=== PATIENT | female | born 1965 | race Caucasian/White ===

== ENCOUNTER 2019-02-16 11:50 | Emergency (ER) | payer OTHER ==
[2019-02-16 12:04] VITALS: BP 155/89; PULSE 85; TEMP 98; BMI 29.7
[2019-02-16] MEDS ORDERED: IBUPROFEN 600 MG TABLET (FP) PO ONE ×2 (13:05→13:26)
--- NOTE | 2019-02-16 13:25 | PDOC ---
History of Present Illness - General Chief Complaint: Injury Stated Complaint: FALL at work Time Seen by Provider: 02/16/19 12:50 History Source: Patient Exam Limitations: No Limitations - History of Present Illness Initial Comments: 02/16/19 13:06 While at work, slipped on wet floor falling onto her left side breaking her fall with her left wrist and arm, and twisting her right ankle. States has bilateral knee pain as well but is ambulatory. Severity: reports: moderate Pain Location: reports: lower extremity (right ankle, bilateral knees,), upper extremity (left wrist) Method of Injury: Yes: direct blow, fall Loss of Consciousness: no loss of consciousness Associated Symptoms (Fall): denies symptoms Past History - Travel Traveled outside of the country in the last 30 days: No Close contact w/someone who was outside of country & ill: No - Past Medical History Allergies/Adverse Reactions: Allergies Allergy/AdvReac Type Severity Reaction Status Date / Time No Known Drug Allergies Allergy Verified 02/16/19 12:04 Home Medications: Ambulatory Orders Oxycodone HCl/Acetaminophen [Percocet 5-325 mg Tablet -] 1 - 2 tab PO Q4H PRN # 10 tablet MDD 4 02/16/19 Anemia: No Asthma: No Cancer: No Cardiac Disorders: No CVA: No COPD: No CHF: No Dementia: No Diabetes: No GI Disorders: No Disorders: No HTN: No Hypercholesterolemia: Yes Liver Disease: No Seizures: No Thyroid Disease: No - Suicide/Smoking/Psychosocial Hx Smoking History: Never smoked Have you smoked in the past 12 months: Yes Number of Cigarettes Smoked Daily: 3 If you are a former smoker, when did you quit?: 2013 Information on smoking cessation initiated: No 'Breaking Loose' booklet given: 12/28/14 Hx Alcohol Use: No Drug/Substance Use Hx: No Substance Use Type: Alcohol Hx Substance Use Treatment: No Review of Systems - Review of Systems Able to Perform ROS?: Yes Is the patient limited Liberian proficient: Yes Constitutional: Yes: Symptoms Reported, See HPI, Malaise HEENTM: Yes: Symptoms Reported, See HPI Respiratory: No: Symptoms reported Musculoskeletal: Yes: Symptoms Reported, See HPI, Joint Pain, Muscle Pain Neurological: Yes: Symptoms reported All Other Systems: Reviewed and Negative *Physical Exam - Vital Signs Last Vital Signs Temp Pulse Resp BP Pulse Ox 98 F 85 18 155/89 100 02/16/19 12:02 02/16/19 12:02 02/16/19 12:02 02/16/19 12:02 02/16/19 12:02 - Physical Exam General Appearance: Yes: Nourished, Appropriately Dressed HEENT: positive: ELLIE, Normal ENT Inspection, TMs Normal Neck: positive: Supple. negative: Tender Respiratory/Chest: positive: Lungs Clear Gastrointestinal/Abdominal: positive: Soft Musculoskeletal: negative: Normal Inspection Extremity: positive: Normal Capillary Refill, Tender, Swelling, Other ( bilateral knees with contusions, left worse than right, has a 4 cm contusion to pretibial area of the left knee, patella is mobile without crepitus or step- offs. Is ambulatory without unsteadiness. Neurovascular intact to toes. Right ankle has mild tenderness to the medial malleolus however no crepitus or step- offs, no navicular fifth metatarsal tenderness. Negative squeeze test. Neurovascular intact to toes.). negative: Normal Inspection (deformity to the distal radius and ulna of left wrist, unable to bend supinate and pronate. 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, Fully Oriented, Alert, Normal Mood/ Affect, Normal Response, Motor Strength 5/5 Moderate Sedation - Procedure Monitoring Vital Signs: Procedure Monitoring Vital Signs Temperature 98 F 02/16/19 12:02 Pulse Rate 85 02/16/19 12:02 Respiratory Rate 18 02/16/19 12:02 Blood Pressure 155/89 02/16/19 12:02 O2 Sat by Pulse Oximetry (%) 100 02/16/19 12:02 ED Treatment Course - RADIOLOGY Radiology Studies Ordered: Category Date Time Status ANKLE-RIGHT [RAD] Stat Radiology 02/16/19 13:06 Ordered WRIST-LEFT [RAD] Stat Radiology 02/16/19 13:04 Ordered Progress Note - Progress Note Progress Note: Status post fall with hand fracture, probable triquetral. Ortho-Glass splint placed/sling and provided #10 Percocet tablets. Will follow-up with Dr. Ayala her orthopedist. Right ankle sprain and multiple contusions. *DC/Admit/Observation/Transfer Diagnosis at time of Disposition: Triquetral chip fracture Qualifiers: Encounter type: initial encounter Fracture type: closed Laterality: left Qualified Code(s): S62.112A - Displaced fracture of triquetrum [cuneiform] bone , left wrist, initial encounter for closed fracture Left ankle sprain Qualifiers: Encounter type: initial encounter Involved ligament of ankle: unspecified ligament Qualified Code(s): S93.402A - Sprain of unspecified ligament of left ankle, initial encounter - Discharge Dispostion Disposition: HOME Condition at time of disposition: Stable Decision to Admit order: No - Referrals Referrals: Raza Schmidt MD [Primary Care Provider] - Tai Canseco MD [Staff Physician] - - Patient Instructions Printed Discharge Instructions: DI for Hand Injury, DI for Ankle Sprain Additional Instructions: Rest, ice to area on and off for 15 minutes 4-6 times a day Avoid heavy lifting or exercise until pain and swelling is resolved or until further directed Keep area highly elevated to reduce swelling Use splints/Danyel wrap as directed Followup with orthopedist in one to 2 days if not improving, if significantly improved may wait one week for followup with orthopedist May use ibuprofen every 6 hours as needed for pain - Post Discharge Activity Forms/Work/School Notes: Back to Work
== END 2019-02-16 14:12 | disposition home or self-care (01) ==
LOC: JERFT 11:50
PROC: 2W3DX1Z Immobilization of Left Lower Arm using Splint (ICD-10-PCS; principal; 2019-02-16)
DX: S62.112A Displaced fracture of triquetrum [cuneiform] bone, left wrist, initial encounter for closed fracture (principal); S93.402A Sprain of unspecified ligament of left ankle, initial encounter; S80.02XA Contusion of left knee, initial encounter; S80.01XA Contusion of right knee, initial encounter; W01.0XXA Fall on same level from slipping, tripping and stumbling without subsequent striking against object, initial encounter; Y93.89 Activity, other specified; Y92.29 Other specified public building as the place of occurrence of the external cause; Y99.0 Civilian activity done for income or pay
CPT/HCPCS: 73110-TC-LT-FY; 73610-TC-RT-FY; 99282-25

== ENCOUNTER 2019-09-25 17:57 | Emergency (ER) | payer OTHER ==
[2019-09-25 18:34] VITALS: TEMP 98.3; BMI 29.2
[2019-09-25] MEDS ORDERED: ACETAMINOPHEN 1000 MG/100 ML VIAL (NON FORMULARY) IVPB ONE (18:52)
[2019-09-25] MEDS ORDERED: ACETAMINOPHEN INJECTION 100 ML IVPB ONE (18:55)
[2019-09-25 19:12] LABS: BASO % 1.3 % (0-2.0); EOS % 2.5 % (0-4.5); HEMATOCRIT 40.1 % (32.4-45.2); HEMOGLOBIN 13.1 GM/dL (10.7-15.3); LYMPH % 34.5 % (8-40); MCH 26.8 pg (25.7-33.7); MCHC 32.5 g/dl (32.0-36.0); MEAN CELL VOLUME 82.3 fl (80-96); MEAN PLT VOLUME 9.2 fl (7.5-11.1); MONO % 6.6 % (3.8-10.2); NEUT % 55.1 % (42.8-82.8); PLATELET COUNT 318 K/MM3 (134-434); RBC 4.87 M/mm3 (3.60-5.2); RDW 13.6 % (11.6-15.6); WHITE BLOOD COUNT 7.7 K/mm3 (4.0-10.0)
--- NOTE | 2019-09-25 19:16 | PDOC ---
History of Present Illness - General Chief Complaint: Chest Pain Stated Complaint: CHEST PAIN Time Seen by Provider: 09/25/19 18:14 History Source: Patient Exam Limitations: No Limitations - History of Present Illness Initial Comments: 09/25/19 21:07 HPI: 54F PMH HLD c/o 3 days of left chest, left neck (trapezius m.), left scapular, and left arm pain. Was seen at Urgent care yesterday PM and discharged w/ dx of neck pain. Urged to go to ED today due to SOB starting around 2pm today. Pain started when pt woke up and is constant, worse w/ breathing, and worse w/ laying down. No trauma or falls. No recent illness. No hx VTE, OCP, or recent surgeries. No rashes. Pt has been taking baclofen, tylenol, motrin w/o relief. Worse w/ movement. PMH HLD diet control NKDA Current vaper Past History - Past Medical History Allergies/Adverse Reactions: Allergies Allergy/AdvReac Type Severity Reaction Status Date / Time No Known Drug Allergies Allergy Verified 02/16/19 12:04 Home Medications: Ambulatory Orders Oxycodone HCl/Acetaminophen [Percocet 5-325 mg Tablet -] 1 - 2 tab PO Q4H PRN # 10 tablet MDD 4 02/16/19 Cyclobenzaprine HCl [Flexeril 10 mg] 10 mg PO HS PRN #3 tablet 09/25/19 Anemia: No Asthma: No Cancer: No Cardiac Disorders: No CVA: No COPD: No CHF: No Dementia: No Diabetes: No GI Disorders: No Disorders: No HTN: No Hypercholesterolemia: Yes Liver Disease: No Seizures: No Thyroid Disease: No - Psycho Social/Smoking Cessation Hx Smoking History: Never smoked Have you smoked in the past 12 months: No Number of Cigarettes Smoked Daily: 3 If you are a former smoker, when did you quit?: 2013 Information on smoking cessation initiated: No 'Breaking Loose' booklet given: 12/28/14 Hx Alcohol Use: No Drug/Substance Use Hx: No Substance Use Type: Alcohol Hx Substance Use Treatment: No Review of Systems - Review of Systems Able to Perform ROS?: Yes Comments:: 09/25/19 21:07 ROS: CONSTITUTIONAL: Denies F / C HEENT: Endorses lightheadness. Denies changes in vision / hearing, diplopia, blurry vision. Denies sore throat. RESP: Endorses SOB. Denies cough CARD: Endorses chest pain. Denies palpitations GI: Denies N / V / D, abdominal pain, bloody stool, inability to tolerate PO : Denies dysuria, hematuria, frequency MSK: Endorses neck and scapular pain SKIN: Denies rashes NEURO: Denies numbness, tingling, weakness Is the patient limited Mexican proficient: No *Physical Exam - Vital Signs Last Vital Signs Temp Pulse Resp BP Pulse Ox 98.3 F 93 H 16 185/134 H 100 09/25/19 18:22 09/25/19 18:22 09/25/19 18:22 09/25/19 18:22 09/25/19 18:22 - Physical Exam Comments: 09/25/19 21:08 PE: VS reviewed - hypertensive, equal BP b/l. GEN: Anxious, mild distress, non-toxic. AAOx3 HEENT: NC/AT. No facial asymmetry. Normal voice. Neck FROM but endorses pain w/ movement. No TTP midline, no step-offs. +TTP on trapezius m. CV: +TTP on left chest wall. S1/S2, RRR, no m/r/g LUNG: CTAB, no wheezes, crackles, rales, rhonchi. GI: soft, ndnt, +BS, no guarding, no rebound. No masses. Neg CVAT b/l. EXTREMITIES: 2+ distal pulses. No LE edema. No calve TTP. No obvious deformities of all extremities. MSK: +TTP LUE and L scapula. No midline vertebral TTP. No step offs or deformities of the vertebral column. SKIN: warm, dry, normal turgor. No rashes or vesicles. PSYCH: anxious, cooperative NEURO: 5/5 UE LE strength b/l. symmetric sensation to light touch. ED Treatment Course - LABORATORY CBC & Chemistry Diagram: 09/25/19 18:40 09/25/19 18:40 - RADIOLOGY Radiology Studies Ordered: Category Date Time Status CHEST X-RAY PORTABLE* [RAD] Stat Radiology 09/25/19 18:40 Ordered - Medications Given in the ED: ED Medications Discontinued Medications Generic Name Dose Route Start Last Admin Trade Name Freq PRN Reason Stop Dose Admin Acetaminophen 1,000 mg 09/25/19 18:52 09/25/19 18:53 Ofirmev Injection - IVPB 09/25/19 18:53 1,000 mg ONCE ONE Administration Medical Decision Making - Medical Decision Making 09/25/19 19:00 MDM: 54F with 3 days of reproducible left chest wall, left scapular, and left trapezius pain. Hypertensive on exam and in pain. DDX - MSK pain, cervical rediculopathy; eval for ACS, AoD, and PTX. Unlikely PE given H&P. - CBC, CMP, Cardiac - EKG, CXR - Pain ctrl 09/25/19 19:50 pain improved but still present s/p tylenol toradol & flexeril, reassess labs reviewed trop neg. UA neg 09/25/19 20:07 BP WNL, VS WNL s/p acetaminophen and toradol Pain decreased / tolerable, patient in no apparent distress DC home w/ pcp f/u and return precautions Discharge - Discharge Information Problems reviewed: Yes Clinical Impression/Diagnosis: Neck muscle strain Qualifiers: Encounter type: initial encounter Qualified Code(s): S16.1XXA - Strain of muscle, fascia and tendon at neck level, initial encounter Trapezius muscle strain Qualifiers: Encounter type: initial encounter Laterality: left Qualified Code(s): S46.812A - Strain of other muscles, fascia and tendons at shoulder and upper arm level, left arm, initial encounter Condition: Stable Disposition: HOME - Admission No - Additional Discharge Information Prescriptions: Cyclobenzaprine HCl [Flexeril 10 mg] 10 mg PO HS PRN #3 tablet PRN Reason: Pain - Follow up/Referral Referrals: Raza Schmidt MD [Primary Care Provider] - - Patient Discharge Instructions Additional Instructions: FOLLOW UP WITH DR. SCHMIDT IN THE NEXT 3-5 DAYS REGARDING YOUR VISIT TO THE EMERGENCY DEPARTMENT. We sent a prescription to your pharmacy, pick it up and use as directed. This medication may cause drowsiness. Do NOT take this medication before operating a motor vehicle. Take this medication BEFORE BEDTIME and ONLY NEEDED. Take tylenol and motrin as directed on the label for pain. Use a warm compress to help alleviate the pain. IMMEDIATELY return to the Emergency Department if you experience worsening, new , or concerning symptoms. - Post Discharge Activity
--- NOTE | 2019-09-25 19:29 | PDOC ---
Documentation entered by Kellen Jimenez SCRIBE, acting as scribe for Carri Stephens MD. Carri Stephens MD: This documentation has been prepared by the Barbara barrow Brenda, SCRIBE, under my direction and personally reviewed by me in its entirety. I confirm that the documentation accurately reflects all work, treatment, procedures, and medical decision making performed by me. Attending Attestation - Resident Resident Name: [place] - ED Attending Attestation I have performed the following: I have examined & evaluated the patient, The case was reviewed & discussed with the resident, I agree w/resident's findings & plan, Exceptions are as noted - HPI HPI: 09/25/19 18:28 The patient is a 54 year old female, with a significant PMH of HLD, who presents to the emergency department with 3 days of constant neck, chest, arm and scapula pain. Patient also endorses an onset of dyspnea this afternoon. Patient reports taking Tylenol/Motrin with no relief. States that pain is worsened with movement. The patient denies trauma. Denies headache and dizziness. Denies fever, chills, nausea, vomiting, diarrhea and constipation. Denies any urinary symptoms. Allergies: NKA Social history: Former tobacco use. No alcohol use, or illicit drug use. PCP: Raza Schmidt - Physicial Exam PE: 09/25/19 18:29 GENERAL: Well-appearing, well-nourished. No apparent distress. HEENT: (+) Left paraspinal tenderness and trapezium tenderness. (+)Left scapula tenderness Normocephalic, atraumatic. PERRL, EOM intact. No Bruits. No JVD. No Midline CVA tenderness. No vesicles. CARDIOVASCULAR: Normal S1, S2. Regular rate and rhythm. PULMONARY: Clear to auscultation bilaterally. ABDOMEN: Soft, non-distended, non-tender. EXTREMITIES: Normal ROM in all four extremities. No gross deformities. SKIN: Warm, dry. No rash NEUROLOGICAL: No focal neurological deficits. - Medical Decision Making 09/25/19 18:31 54 yo female with constant left sided trapezius,scapular and forearm pain for 4 days. Denies any trauma EKG is normal sinus rhythm at 80 bpm, nonspecific ST and T wave abnormalities. Inverted T waves in V1 09/25/19 19:30 Differential diagnosis includes acute coronary syndrome, pericarditis, pulmonary embolus, pneumothorax, musculoskeletal strain, cervical radiculopathy Plan pain management, cardiac enzymes, CBC, comp, INR, PA lateral chest x-ray and coag 09/25/19 19:33 CXR normal mediastinum,no effusions,no ptx,no consolidations 09/25/19 19:35 -She has no focal neuro deficits: no tingling ,no numbness, motor strength 5/5, b/l 09/25/19 20:11 After pain medication her repeat blood pressure was 118/81 09/25/19 20:12 negative troponin.labs unremarkable 09/25/19 20:36 pt feels much better and will be discharged home she was informed that she may need additional w/u with PCP or orthopedics
[2019-09-25] MEDS ORDERED: KETOROLAC TROMETHAMINE 30 MG/1 ML VIAL IVPUSH ONE (19:33)
[2019-09-25 19:35] LABS: ACTIVATED PTT 35.9 SECONDS (25.2-36.5)
[2019-09-25 19:40] LABS: EPI CELLS 1.1 /HPF (0-5/HPF); HYALINE CASTS 0 /lpf (0-8); PH,URINE 7.5 (5.0-8.0); URINE APPEARANCE CLEAR; URINE BACTERIA 4.8 /hpf (NEGATIVE); URINE BILIRUBIN NEGATIVE (NEGATIVE); URINE COLOR YELLOW; URINE GLUCOSE (UA) NEGATIVE (NEGATIVE); URINE KETONE NEGATIVE (NEGATIVE); URINE LEUK ESTERASE 1+ (NEGATIVE); URINE NITRITE NEGATIVE (NEGATIVE); URINE PROTEIN NEGATIVE (NEGATIVE); URINE RBC 3 /hpf (0-4); URINE UROBILINOGEN 0.2 mg/dL (0.2-1.0); URINE WBC 2 /hpf (0-5)
[2019-09-25 19:43] LABS: ALBUMIN 4.2 g/dl (3.4-5.0); ALK PHOS 107 U/L (45-117); ANION GAP 7 MMOL/L (8-16); BILIRUBIN,TOTAL 0.7 mg/dL (0.2-1); BLOOD UREA NITROGEN 11.6 mg/dL (7-18); CALCIUM 9.4 mg/dL (8.5-10.1); CHLORIDE 104 mmol/L (98-107); CO2 27 mmol/L (21-32); CREATININE 0.6 mg/dL (0.55-1.3); GLUCOSE,RANDOM 77 mg/dL (74-106); POTASSIUM 3.9 mmol/L (3.5-5.1); SGOT/AST 21 U/L (15-37); SGPT/ALT 27 U/L (13-61); SODIUM 139 mmol/L (136-145); TOT PROT 7.9 g/dl (6.4-8.2)
[2019-09-25] MEDS ORDERED: KETOROLAC TROMETHAMINE 30 MG/1 ML VIAL ONE (19:46)
[2019-09-25] MEDS ORDERED: CYCLOBENZAPRINE HCL 10 MG TABLET (FP) PO ONE (19:54)
[2019-09-25 19:57] LABS: INR 1.01 (0.83-1.09); PROTHROMBIN TIME (PATIENT) 11.9 SEC (9.7-13.0)
[2019-09-25] MEDS ORDERED: CYCLOBENZAPRINE HCL 10 MG TABLET (FP) ONE (19:58)
[2019-09-25 20:09] VITALS: BP 118/81; PULSE 81
--- NOTE | 2019-09-26 11:05 | EKG ---
Test Reason : Blood Pressure : / mmHG Vent. Rate : 080 BPM Atrial Rate : 080 BPM P-R Int : 158 ms QRS Dur : 082 ms QT Int : 388 ms P-R-T Axes : 067 045 007 degrees QTc Int : 447 ms NORMAL SINUS RHYTHM POSSIBLE LEFT ATRIAL ENLARGEMENT NONSPECIFIC ST AND T WAVE ABNORMALITY ABNORMAL ECG WHEN COMPARED WITH ECG OF 09-OCT-2004 17:20, NONSPECIFIC T WAVE ABNORMALITY NOW EVIDENT IN ANTERIOR LEADS Confirmed by Juan Pablo Bucio MD ([id number]) on 09/26/2019 11:05:07 AM Referred By: Confirmed By:Juan Pablo Bucio MD
== END 2019-09-25 20:41 | disposition home or self-care (01) ==
LOC: JER 17:57
PROC: 3E033NZ Introduction of Analgesics, Hypnotics, Sedatives into Peripheral Vein, Percutaneous Approach (ICD-10-PCS; principal; 2019-09-25)
PROC: 3E0333Z Introduction of Anti-inflammatory into Peripheral Vein, Percutaneous Approach (ICD-10-PCS; 2019-09-25)
DX: S16.1XXA Strain of muscle, fascia and tendon at neck level, initial encounter (principal); S46.812A Strain of other muscles, fascia and tendons at shoulder and upper arm level, left arm, initial encounter; X58.XXXA Exposure to other specified factors, initial encounter; Y93.89 Activity, other specified; Y92.89 Other specified places as the place of occurrence of the external cause; Y99.8 Other external cause status; E78.5 Hyperlipidemia, unspecified
CPT/HCPCS: 36415; 71046-TC-FY; 80053; 81003; 82550; 84484; 85025; 85610; 85730; 93005; 93010; 99283-25; J0131